=== PATIENT | female | born 1950 | race American Indian/Alaskan Native ===

== ENCOUNTER 2018-12-26 16:46 | Inpatient (IN) | payer MEDICARE ==
[2018-12-26] MEDS ORDERED: HALOPERIDOL LACTATE 5 MG/1 ML INJ IM PRN (19:38)
[2018-12-26] MEDS ORDERED: LORazepam 2 MG/ML VIAL IM PRN (19:38)
[2018-12-28] MEDS ORDERED: LORazepam 1 MG TAB PO PRN (01:25)
[2018-12-28] MEDS ORDERED: HALOPERIDOL LACTATE 5 MG/1 ML INJ IM PRN (01:28)
[2018-12-28] MEDS ORDERED: HALOPERIDOL 5 MG TAB PO PRN (01:28)
[2018-12-28] MEDS: OLANzapine ZYDIS 5 MG TAB PO SCH ×2 (04:19→21:36)
[2018-12-28] MEDS: LISINOPRIL 20 MG TAB PO SCH (10:22)
--- NOTE | 2018-12-28 13:37 | Consultation ---
History of Present Illness - Reason for Consult Consult date: 12/28/18 MEDICAL MANAGEMENT HTN Requesting physician: NATHAN SRIVASTAVA - History of Present Illness 68 year old female with hxx of MDD With Pyschotic features, and inability to care for herself, HTN presenting to our facility following mangement at an outside facility for wandering from home. hx of Divorce. Patient was transferred from [facility] to [facility]. patient was found wandered from home, she is delusional, hyper-yazidism, paranoid and present with poor PO intake and poor hygiene. she Leaves with daughter Hx of 1013 in the past Hx of POOR PO inake, insomina and poor hygiene Possible underlying Dementia Hyperreligious with parnaoid delusions further record obtained from the chart shows "She did nid not want to be in the same house with the cat so she left and was waiting for her brother who lives in [place] to come get her. She knew her brother was on his way to get her because "my spirits told me so". Her spirits also told her not to stay in the same house as the cat. She denies hallucinations, paranoia, suicidal or homicidal thoughts. She describes a good and stable mood. She sleeps fairly ok and appetite is fine. Past History Past Medical History: other (schizophrenia) Past Surgical History: No surgical history Social history: no significant social history Family history: no significant family history Medications and Allergies Allergies Allergy/AdvReac Type Severity Reaction Status Date / Time No Known Allergies Allergy Unverified 12/28/18 00:52 Home Medications Medication Instructions Recorded Confirmed Last Taken Type Lisinopril 20 mg PO DAILY 12/30/18 12/30/18 Unknown History Zyprexa Zydis 5 mg PO HS 12/30/18 12/30/18 Unknown History Active Meds: Active Medications Haloperidol (Haldol) 5 mg PO Q6H PRN PRN Reason: Agitation Haloperidol Lactate (Haldol) 5 mg IM Q6H PRN PRN Reason: Agitation Lisinopril (Zestril) 20 mg PO QDAY [facility] Last Admin: 12/28/18 10:22 Dose: 20 mg Documented by: Lorazepam (Ativan) 2 mg IM Q6H PRN PRN Reason: Agitation Lorazepam (Ativan) 2 mg PO Q6H PRN PRN Reason: Agitation Olanzapine (Zyprexa Zydis) 5 mg PO QHS [facility] Last Admin: 12/28/18 04:19 Dose: Not Given Documented by: Review of Systems All systems: negative Cardiovascular: no chest pain, no orthopnea Gastrointestinal: no vomiting, no diarrhea, no change in bowel habits, no hematochezia, no heartburn, no jaundice, no early satiety Rectal: no incontinence Musculoskeletal: no neck pain, no shooting arm pain, no low back pain, no morning stiffness, no muscle weakness, no muscle cramps, no fractures Integumentary: no pruritis, no sores, no jaundice, no bullae, no darkening of skin, no dryness, no hirsutism, no foot/leg ulcers Neurological: no parathesias, no tingling, no syncope, no aphasia, no sensory deficit, no loss of vision, no hearing difficulties Psychiatric: no memory loss, no change in sleep habits, no insomnia, no hypersomnia, no disorientation, no paranoia, no depression, no confusion, no sadness/tearfullness Endocrine: no cold intolerance, no polyphagia, no nocturia, no weight change, no increase in ring/shoe/hat size, no deepening of the voice, no thyroid mass, no low blood sugars, no recent glucocorticoid use Allergic/Immunologic: no urticaria, no persistent infections Exam - Constitutional Vitals: Temp Pulse Resp BP Pulse Ox 87 136/68 98 12/28/18 10:22 12/28/18 10:22 12/28/18 10:18 General appearance: Present: no acute distress - EENT Eyes: Present: PERRL, EOM intact ENT: hearing intact, clear oral mucosa - Neck Neck: Present: supple, normal ROM - Respiratory Respiratory effort: normal Respiratory: bilateral: CTA - Cardiovascular Rhythm: regular Heart Sounds: Present: S1 & S2. Absent: systolic murmur, diastolic murmur - Extremities Extremities: no ischemia, pulses intact, pulses symmetrical, No edema, normal temperature, normal color, Full ROM Peripheral Pulses: within normal limits - Abdominal General gastrointestinal: Present: soft, non-tender, non-distended, normal bowel sounds - Integumentary Integumentary: Present: clear, warm, dry - Musculoskeletal Musculoskeletal: strength equal bilaterally - Psychiatric Psychiatric: cooperative, depressed - Allied Health Allied health notes reviewed: nursing Assessment and Plan 68 year old female with hxx of MDD With Pyschotic features, and inability to care for herself, HTN presenting to our facility following mangement at an outside facility for wandering from home. hx of Divorce Leaves with daughter Hx of 1013 in the past Hx of POOR PO inake, insomina and poor hygiene Possible underlying Dementia Hyperreligious with parnaoid delusions HTN -Resume lisinopril MDD -Mangement per Pysch team. dvt/gi prophy
--- NOTE | 2018-12-28 20:04 | History and Physical Report ---
GP History & Physical - History of Present Illness Date of admission: 12/27/18 Date of Examination: 12/28/18 Reason for Admission: Impaired reality testing, Psychopathology interference, Unable to care for self Chief Complaint: I did not want to be in the same house with a cat History of Present Illness: The patient is a 68yo AAF with unknown psychiatric history, transferred from [facility] to [facility]. Per referral source, patient was found wandered from home, she is delusional, hyper-spiritism, paranoid and present with poor PO intake and poor hygiene. In my interview with the patient she reports that her daughter brought home a friend's cat to [facility]" without consulting her (the patient). She asked her daughter to take the cat away from the house but daughter refused. She did nid not want to be in the same house with the cat so she left and was waiting for her brother who lives in [place] to come get her. She knew her brother was on his way to get her because "my spirits told me so". Her spirits also told her not to stay in the same house as the cat. She denies hallucinations, paranoia, suicidal or homicidal thoughts. She describes a good and stable mood. She sleeps fairly ok and appetite is fine. Legal Status: Involuntary Patient Problems: Current Active Problems Unspecified psychosis (Acute) Reaction to Hospitalization: Opposed Substance History - Substance History Drug Use: none Hx Tobacco Use: No Alcohol Use: No Past psychiatric history - Past Medical History Past Medical History: hypertension - past Psychiatric treatment and history psychiatric treatment history: Patient reports 2 previous psych admissions. No suicide attempts and no established out-patient care - Social History Social history: , lives with family (with daughter, retired, completed high school, no legal problems and no access to guns) Review of Systems All systems: negative Psychiatric: irritability Results - Results Labs/Vitals: Last Vital Signs Temp Pulse 87 12/28/18 10:22 Resp BP 136/68 12/28/18 10:22 Pulse Ox 98 12/28/18 10:18 Physical Examination - Constitutional Vitals: Vital Signs Temp Pulse Resp BP Pulse Ox 87 136/68 98 12/28/18 10:22 12/28/18 10:22 12/28/18 10:18 General appearance: Present: no acute distress, well-nourished - EENT Eyes: Present: PERRL, EOM intact ENT: hearing intact, clear oral mucosa - Neck Neck: Present: supple, normal ROM - Respiratory Respiratory effort: normal Mental Status Exam - Vital signs Last Vital Signs Temp Pulse 87 12/28/18 10:22 Resp BP 136/68 12/28/18 10:22 Pulse Ox 98 12/28/18 10:18 - Exam Orientation: time, place, person Affect: flat Mood: congruent with affect Thought content: delusions (?) Thought Process: Intact Perceptions: none Speech: normal rate and pattern Concentration: focused Motor activity: normal Level of consciousness: alert Memory: Intact Interaction: guarded Assessment and Plan - Psychiatric problem (1) Unspecified psychosis Current Visit: Yes Status: Acute plan to address problem: Patient will be admitted for inpatient psychiatric evaluation, medication adjustment and close monitoring The patient's behavior, mood, sleep and appetite will be closely monitored. Patient will be enrolled in individual and group therapeutic sessions and encouraged to attend. Patient will be provided with a safe and structured environment. Patient's physical health needs will be addressed by the Hospitalist. Social Assessment will be completed and the Aws Developer will work with patient and family to ensure a suitable and safe disposition Medication adjustment will be made as clinically indicated The patient agreed on the treatment plan, understood the risk, benefit, alternative treatment, potential consequence of no treatment, and gave informed consent. Physician Certification - Certification Statement Physician Certification Statement: This is an acknowledgement statement that CLARI HOPKINS is a 68 year old F who requires inpatient psychiatric admission for treatment which could reasonably be expected to improve the patient's condition for Psychosis Estimated period of time patient will need to remain in the hospital: 7 days Plan for post-hospital care: Out-patient care Medications & Allergies - Medications Allergies/Adverse Reactions: Allergies No Known Allergies Allergy (Unverified 12/28/18 00:52) Active Medications: Generic Name Dose Route Start Last Admin Trade Name Freq PRN Reason Stop Dose Admin Haloperidol 5 mg 12/28/18 01:28 Haldol PO Q6H PRN Agitation Haloperidol Lactate 5 mg 12/26/18 19:38 Haldol IM Q6H PRN Agitation Lisinopril 20 mg 12/28/18 10:00 12/28/18 10:22 Zestril PO 20 mg QDAY [facility]STA Administration Lorazepam 2 mg 12/26/18 19:38 Ativan IM Q6H PRN Agitation Lorazepam 2 mg 12/28/18 01:25 Ativan PO Q6H PRN Agitation Olanzapine 5 mg 12/28/18 03:03 12/28/18 04:19 Zyprexa Zydis PO Not Given QHS [facility]RISTA
[2018-12-29] MEDS: LISINOPRIL 20 MG TAB PO SCH (10:33)
--- NOTE | 2018-12-29 21:21 | Progress Note ---
Subjective Date of service: 12/29/18 Principal diagnosis: Acute Psychosis Subjective Comment: The patient is withdrawn, isolates and refuses medications. She is guarded, states that her mood is good, denies SI/HI/AVH. MSE Orientation: time, place, person Affect: flat Mood: congruent with affect Thought content: delusions (?) Thought Process: Intact Perceptions: none Speech: normal rate and pattern Concentration: focused Motor activity: normal Level of consciousness: alert Memory: Intact Interaction: guarded Objective - Criteria for Continued Treatment Criteria for Continued Treatment: Understanding Diagnosis and need for Medication, Improving Treatment / Medication Compliance, Confronting Denial of Illness - Objective Observation Participation Level: None Reason(s) For Not Participating: Not Interested Assessment and Plan - Patient Problems (1) Unspecified psychosis Current Visit: Yes Status: Acute Plan to address problem: Patient will be admitted for inpatient psychiatric evaluation, medication adjustment and close monitoring The patient's behavior, mood, sleep and appetite will be closely monitored. Patient will be enrolled in individual and group therapeutic sessions and encouraged to attend. Patient will be provided with a safe and structured environment. Patient's physical health needs will be addressed by the Hospitalist. Social Assessment will be completed and the Design Agent will work with patient and family to ensure a suitable and safe disposition Medication adjustment will be made as clinically indicated The patient agreed on the treatment plan, understood the risk, benefit, alternative treatment, potential consequence of no treatment, and gave informed consent. Medications & Allergies - Medications Allergies/Adverse Reactions: Allergies No Known Allergies Allergy (Unverified 12/28/18 00:52) Active Medications: Generic Name Dose Route Start Last Admin Trade Name Freq PRN Reason Stop Dose Admin Haloperidol 5 mg 12/28/18 01:28 Haldol PO Q6H PRN Agitation Haloperidol Lactate 5 mg 12/26/18 19:38 Haldol IM Q6H PRN Agitation Lisinopril 20 mg 12/28/18 10:00 12/29/18 10:33 Zestril PO Not Given QDAY [facility]STA Lorazepam 2 mg 12/26/18 19:38 Ativan IM Q6H PRN Agitation Lorazepam 2 mg 12/28/18 01:25 Ativan PO Q6H PRN Agitation Olanzapine 5 mg 12/28/18 03:03 12/28/18 21:36 Zyprexa Zydis PO Not Given QHS [facility]RISTA
[2018-12-29] MEDS: OLANzapine ZYDIS 5 MG TAB PO SCH (21:29)
[2018-12-30] MEDS: LISINOPRIL 20 MG TAB PO SCH (10:33)
--- NOTE | 2018-12-30 17:03 | Progress Note ---
Subjective Date of service: 12/30/18 Principal diagnosis: Acute Psychosis Subjective Comment: The patient is psychotic - paranoid and disorganized. Not showering, hair is matted, is withdrawn, isolates and hyper-mandaeism. Distressed about the devil attacking her. States that she fell earlier today because the devil attacked her. She is guarded, denies SI/HI/AVH. MSE Orientation: time, place, person Affect: flat Mood: congruent with affect Thought content: delusional Thought Process: Intact Perceptions: none Speech: normal rate and pattern Concentration: focused Motor activity: normal Level of consciousness: alert Memory: Intact Interaction: guarded Objective - Criteria for Continued Treatment Criteria for Continued Treatment: Improving Level of Functioning, Understanding Diagnosis and need for Medication, Improving Treatment / Medication Compliance, Confronting Denial of Illness, Stablizing Level of Functioning, Improving Emotional/Socia - Objective Observation Participation Level: Minimal Reason(s) For Not Participating: Not Interested Assessment and Plan - Patient Problems (1) Unspecified psychosis Current Visit: Yes Status: Acute Plan to address problem: Patient will be admitted for inpatient psychiatric evaluation, medication adjustment and close monitoring The patient's behavior, mood, sleep and appetite will be closely monitored. Patient will be enrolled in individual and group therapeutic sessions and encouraged to attend. Patient will be provided with a safe and structured environment. Patient's physical health needs will be addressed by the Hospitalist. Social Assessment will be completed and the Heavy Equipment Diesel Mechanic will work with patient and family to ensure a suitable and safe disposition Medication adjustment will be made as clinically indicated Start Haldol 5mg bid IM for acute psychosis Medications & Allergies - Medications Allergies/Adverse Reactions: Allergies No Known Allergies Allergy (Unverified 12/28/18 00:52) Home Medications: Home Medications Medication Instructions Recorded Confirmed Last Taken Type Lisinopril 20 mg PO DAILY 12/30/18 12/30/18 Unknown History Zyprexa Zydis 5 mg PO HS 12/30/18 12/30/18 Unknown History Active Medications: Generic Name Dose Route Start Last Admin Trade Name Freq PRN Reason Stop Dose Admin Haloperidol 5 mg 12/28/18 01:28 Haldol PO Q6H PRN Agitation Haloperidol Lactate 5 mg 12/26/18 19:38 Haldol IM Q6H PRN Agitation Lisinopril 20 mg 12/28/18 10:00 12/30/18 10:33 Zestril PO Not Given QDAY [facility]STA Lorazepam 2 mg 12/26/18 19:38 Ativan IM Q6H PRN Agitation Lorazepam 2 mg 12/28/18 01:25 Ativan PO Q6H PRN Agitation Olanzapine 5 mg 12/28/18 03:03 12/29/18 21:29 Zyprexa Zydis PO Not Given QHS [facility]
[2018-12-30] MEDS ORDERED: HALOPERIDOL LACTATE 5 MG/1 ML INJ IM ONE ×2 (18:00→19:34)
[2018-12-30] MEDS: OLANzapine ZYDIS 5 MG TAB PO SCH ×2 (22:00→22:35)
[2018-12-31] MEDS: risperiDONE 0.25 MG TAB PO SCH ×2 (11:11→21:55)
[2018-12-31] MEDS: LISINOPRIL 20 MG TAB PO SCH (11:11)
--- NOTE | 2018-12-31 15:11 | Progress Note ---
Subjective Date of service: 12/31/18 Principal diagnosis: Acute Psychosis Subjective Comment: The patient is psychotic - paranoid and disorganized. Not showering, hair is matted, is withdrawn, isolates and hyper-caodaism. She has reportedly not showered for months. She is guarded, denies SI/HI/AVH. MSE Orientation: time, place, person Affect: flat Mood: congruent with affect Thought content: delusional Thought Process: Intact Perceptions: none Speech: normal rate and pattern Concentration: focused Motor activity: normal Level of consciousness: alert Memory: Intact Interaction: guarded Objective - Criteria for Continued Treatment Criteria for Continued Treatment: Improving Level of Functioning, Reducing Isolative Behaviors, Understanding Diagnosis and need for Medication, Improving Treatment / Medication Compliance, Confronting Denial of Illness, Stablizing Level of Functioning, Improving Emotional/Socia - Objective Observation Participation Level: None Reason(s) For Not Participating: Not Interested Assessment and Plan - Patient Problems (1) Unspecified psychosis Current Visit: Yes Status: Acute Plan to address problem: Patient will be admitted for inpatient psychiatric evaluation, medication adjustment and close monitoring The patient's behavior, mood, sleep and appetite will be closely monitored. Patient will be enrolled in individual and group therapeutic sessions and encouraged to attend. Patient will be provided with a safe and structured environment. Patient's physical health needs will be addressed by the Hospitalist. Social Assessment will be completed and the Automotive Worker will work with patient and family to ensure a suitable and safe disposition Medication adjustment will be made as clinically indicated Medications & Allergies - Medications Allergies/Adverse Reactions: Allergies No Known Allergies Allergy (Unverified 12/28/18 00:52) Home Medications: Home Medications Medication Instructions Recorded Confirmed Last Taken Type Lisinopril 20 mg PO DAILY 12/30/18 12/30/18 Unknown History Zyprexa Zydis 5 mg PO HS 12/30/18 12/30/18 Unknown History Active Medications: Generic Name Dose Route Start Last Admin Trade Name Freq PRN Reason Stop Dose Admin Haloperidol 5 mg 12/28/18 01:28 Haldol PO Q6H PRN Agitation Haloperidol Lactate 5 mg 12/26/18 19:38 Haldol IM Q6H PRN Agitation Lisinopril 20 mg 12/28/18 10:00 12/31/18 11:11 Zestril PO 20 mg QDAY [facility] Administration Lorazepam 2 mg 12/26/18 19:38 Ativan IM Q6H PRN Agitation Lorazepam 2 mg 12/28/18 01:25 Ativan PO Q6H PRN Agitation Risperidone 0.5 mg 12/31/18 10:00 12/31/18 11:11 Risperdal PO 0.5 mg BID CHRISTA Administration
[2019-01-01] MEDS: risperiDONE 0.25 MG TAB PO SCH ×2 (10:44→21:42)
[2019-01-01] MEDS: LISINOPRIL 20 MG TAB PO SCH (10:46)
--- NOTE | 2019-01-01 11:11 | Progress Note ---
Subjective Date of service: 01/01/19 Principal diagnosis: Acute Psychosis Subjective Comment: The patient is less psychotic, she is more interactive and accepts her medications without resistance. She denies SI/HI/AVH. MSE Orientation: time, place, person Affect: flat Mood: congruent with affect Thought content: delusional Thought Process: Intact Perceptions: none Speech: normal rate and pattern Concentration: focused Motor activity: normal Level of consciousness: alert Memory: Intact Interaction: guarded Objective - Criteria for Continued Treatment Criteria for Continued Treatment: Improving Level of Functioning, Reducing Isolative Behaviors, Understanding Diagnosis and need for Medication, Improving Treatment / Medication Compliance, Confronting Denial of Illness, Stablizing Level of Functioning, Improving Emotional/Socia - Objective Observation Participation Level: Minimal Assessment and Plan - Patient Problems (1) Unspecified psychosis Current Visit: Yes Status: Acute Plan to address problem: Patient will be admitted for inpatient psychiatric evaluation, medication adjustment and close monitoring The patient's behavior, mood, sleep and appetite will be closely monitored. Patient will be enrolled in individual and group therapeutic sessions and encouraged to attend. Patient will be provided with a safe and structured environment. Patient's physical health needs will be addressed by the Hospitalist. Social Assessment will be completed and the Piano Mover will work with patient and family to ensure a suitable and safe disposition Medication adjustment will be made as clinically indicated Medications & Allergies - Medications Allergies/Adverse Reactions: Allergies No Known Allergies Allergy (Unverified 12/28/18 00:52) Home Medications: Home Medications Medication Instructions Recorded Confirmed Last Taken Type Lisinopril 20 mg PO DAILY 12/30/18 12/30/18 Unknown History Zyprexa Zydis 5 mg PO HS 12/30/18 12/30/18 Unknown History Active Medications: Generic Name Dose Route Start Last Admin Trade Name Freq PRN Reason Stop Dose Admin Haloperidol 5 mg 12/28/18 01:28 Haldol PO Q6H PRN Agitation Haloperidol Lactate 5 mg 12/26/18 19:38 12/31/18 22:54 Haldol IM 5 mg Q6H PRN Administration Agitation Lisinopril 20 mg 12/28/18 10:00 01/01/19 10:46 Zestril PO 20 mg QDAY [facility]STA Administration Lorazepam 2 mg 12/26/18 19:38 Ativan IM Q6H PRN Agitation Lorazepam 2 mg 12/28/18 01:25 Ativan PO Q6H PRN Agitation Risperidone 0.5 mg 12/31/18 10:00 01/01/19 10:44 Risperdal PO 0.5 mg BID CHRISTA Administration
[2019-01-02] MEDS: risperiDONE 0.25 MG TAB PO SCH ×2 (10:05→23:16)
[2019-01-02] MEDS: LISINOPRIL 20 MG TAB PO SCH (10:05)
[2019-01-03] MEDS: risperiDONE 0.25 MG TAB PO SCH ×2 (09:42→21:24)
[2019-01-03] MEDS: LISINOPRIL 20 MG TAB PO SCH (09:42)
--- NOTE | 2019-01-03 17:42 | Progress Note ---
Subjective Date of service: 01/03/19 Principal diagnosis: Acute Psychosis Subjective Comment: The patient is less psychotic, she is more interactive and accepts her medications without resistance. She denies SI/HI/AVH. MSE Orientation: time, place, person Affect: flat Mood: congruent with affect Thought content: delusional Thought Process: Intact Perceptions: none Speech: normal rate and pattern Concentration: focused Motor activity: normal Level of consciousness: alert Memory: Intact Interaction: guarded Objective - Criteria for Continued Treatment Criteria for Continued Treatment: Improving Level of Functioning, Reducing Isolative Behaviors, Understanding Diagnosis and need for Medication, Improving Treatment / Medication Compliance, Confronting Denial of Illness, Stablizing Level of Functioning, Improving Emotional/Socia - Objective Observation Participation Level: Minimal Assessment and Plan - Patient Problems (1) Unspecified psychosis Current Visit: Yes Status: Acute Plan to address problem: Patient will be admitted for inpatient psychiatric evaluation, medication adjustment and close monitoring The patient's behavior, mood, sleep and appetite will be closely monitored. Patient will be enrolled in individual and group therapeutic sessions and encouraged to attend. Patient will be provided with a safe and structured environment. Patient's physical health needs will be addressed by the Hospitalist. Social Assessment will be completed and the Gas Transfer Operator will work with patient and family to ensure a suitable and safe disposition Medication adjustment will be made as clinically indicated
--- NOTE | 2019-01-04 09:18 | Progress Note ---
Subjective Date of service: 01/04/19 Principal diagnosis: Acute Psychosis Subjective Comment: The patient is less psychotic, she is more interactive and accepts her medications without resistance. She denies SI/HI/AVH. MSE Orientation: time, place, person Affect: flat Mood: congruent with affect Thought content: delusional Thought Process: Intact Perceptions: none Speech: normal rate and pattern Concentration: focused Motor activity: normal Level of consciousness: alert Memory: Intact Interaction: guarded Objective - Criteria for Continued Treatment Criteria for Continued Treatment: Improving Level of Functioning, Reducing Isolative Behaviors, Understanding Diagnosis and need for Medication, Improving Treatment / Medication Compliance, Confronting Denial of Illness, Stablizing Level of Functioning, Improving Emotional/Socia - Objective Observation Participation Level: Moderate Assessment and Plan - Patient Problems (1) Unspecified psychosis Current Visit: Yes Status: Acute Plan to address problem: Patient will be admitted for inpatient psychiatric evaluation, medication adjustment and close monitoring The patient's behavior, mood, sleep and appetite will be closely monitored. Patient will be enrolled in individual and group therapeutic sessions and encouraged to attend. Patient will be provided with a safe and structured environment. Patient's physical health needs will be addressed by the Hospitalist. Social Assessment will be completed and the Dynamics Ax Technical Architect will work with patient and family to ensure a suitable and safe disposition Medication adjustment will be made as clinically indicated
[2019-01-04] MEDS: risperiDONE 0.25 MG TAB PO SCH ×2 (10:00→22:04)
[2019-01-04] MEDS: LISINOPRIL 20 MG TAB PO SCH (10:28)
[2019-01-05] MEDS: LISINOPRIL 20 MG TAB PO SCH (10:21)
[2019-01-05] MEDS: risperiDONE 0.25 MG TAB PO SCH ×2 (10:22→22:05)
--- NOTE | 2019-01-06 07:34 | Progress Note ---
Subjective Date of service: 01/05/19 Principal diagnosis: Acute Psychosis Subjective Comment: The patient is less psychotic, she is more interactive and accepts her medications without resistance. She denies SI/HI/AVH. She is now voluntary. I have discussed Long acting monthly/2 weekly antipsychotic injection to ensure compliance MSE Orientation: time, place, person Affect: flat Mood: congruent with affect Thought content: delusional Thought Process: Intact Perceptions: none Speech: normal rate and pattern Concentration: focused Motor activity: normal Level of consciousness: alert Memory: Intact Interaction: guarded Objective - Criteria for Continued Treatment Criteria for Continued Treatment: Improving Level of Functioning, Reducing Isolative Behaviors, Understanding Diagnosis and need for Medication, Confronting Denial of Illness, Stablizing Level of Functioning, Improving Emotional/Socia - Objective Observation Participation Level: Minimal Assessment and Plan - Patient Problems (1) Unspecified psychosis Current Visit: Yes Status: Acute Plan to address problem: Patient will be admitted for inpatient psychiatric evaluation, medication adjustment and close monitoring The patient's behavior, mood, sleep and appetite will be closely monitored. Patient will be enrolled in individual and group therapeutic sessions and encouraged to attend. Patient will be provided with a safe and structured environment. Patient's physical health needs will be addressed by the Hospitalist. Social Assessment will be completed and the Metal Finisher will work with patient and family to ensure a suitable and safe disposition Medication adjustment will be made as clinically indicated
[2019-01-06] MEDS: LISINOPRIL 20 MG TAB PO SCH (09:44)
[2019-01-06] MEDS: risperiDONE 0.25 MG TAB PO SCH ×2 (09:45→21:00)
--- NOTE | 2019-01-06 11:35 | Progress Note ---
Subjective Date of service: 01/06/19 Principal diagnosis: Acute Psychosis Subjective Comment: The patient is not psychotic. She is insightful, recognizes that she was not well and promises to take her medications including monthly antipsychotic injection. She is interactive and accepts her medications without resistance. She denies SI/HI/AVH. MSE Orientation: time, place, person Affect: Normal Mood: congruent with affect Thought content: Normal Thought Process: Intact Perceptions: none Speech: normal rate and pattern Concentration: focused Motor activity: normal Level of consciousness: alert Memory: Intact Interaction: Cooperative Objective - Criteria for Continued Treatment Criteria for Continued Treatment: Improving Level of Functioning, Stablizing Level of Functioning, Improving Emotional/Socia - Objective Observation Participation Level: Moderate Assessment and Plan - Patient Problems (1) Unspecified psychosis Current Visit: Yes Status: Acute Plan to address problem: Patient will be admitted for inpatient psychiatric evaluation, medication adjustment and close monitoring The patient's behavior, mood, sleep and appetite will be closely monitored. Patient will be enrolled in individual and group therapeutic sessions and encouraged to attend. Patient will be provided with a safe and structured environment. Patient's physical health needs will be addressed by the Hospitalist. Social Assessment will be completed and the Graphotype Operator will work with patient and family to ensure a suitable and safe disposition Medication adjustment will be made as clinically indicated Medications & Allergies - Medications Allergies/Adverse Reactions: Allergies No Known Allergies Allergy (Unverified 12/28/18 00:52) Home Medications: Home Medications Medication Instructions Recorded Confirmed Last Taken Type Lisinopril 20 mg PO DAILY 12/30/18 12/30/18 Unknown History Zyprexa Zydis 5 mg PO HS 12/30/18 12/30/18 Unknown History Active Medications: Generic Name Dose Route Start Last Admin Trade Name Freq PRN Reason Stop Dose Admin Haloperidol 5 mg 12/28/18 01:28 Haldol PO Q6H PRN Agitation Haloperidol Lactate 5 mg 12/26/18 19:38 12/31/18 22:54 Haldol IM 5 mg Q6H PRN Administration Agitation Lisinopril 20 mg 12/28/18 10:00 01/07/19 09:26 Zestril PO 20 mg QDAY CHRISTA Administration Lorazepam 2 mg 12/26/18 19:38 Ativan IM Q6H PRN Agitation Lorazepam 2 mg 12/28/18 01:25 Ativan PO Q6H PRN Agitation Risperidone 0.5 mg 12/31/18 10:00 01/07/19 09:27 Risperdal PO 0.5 mg BID CHRISTA Administration
[2019-01-07 09:25] VITALS: BP 109/56
[2019-01-07] MEDS: LISINOPRIL 20 MG TAB PO SCH (09:26)
[2019-01-07] MEDS: risperiDONE 0.25 MG TAB PO SCH (09:27)
--- NOTE | 2019-01-07 11:32 | Discharge Summary ---
Providers - Providers Date of Admission: 12/28/18 00:53 Date of discharge: 01/07/19 Attending physician: NATHAN SRIVASTAVA MD 12/28/18 01:01 Consult to Dietitian/Nutrition [CONS] Routine Physician Instructions: Reason For Exam: Reason for Consult: HTN Consult to Physician [CONS] Routine Comment: Consulting Provider: MAIN BASS Physician Instructions: Reason For Exam: H&P Primary care physician: RESTAURANT CASHIER Hospitalization Reason for admission: Psychotic, disorganized and paranoid Condition: Stable Hospital course: The patient was provided inpatient psychiatric treatment with safe and supportive environment, group therapy, individual counseling, psychiatric medication, medication adjustment, adverse effect monitor, medical evaluation, medical treatment, social service assessment, family/social support meeting, placement assessment and psycho-education. The patients mood, anxiety, though ts, stress management skill, cognition, impulse/anger control, motivation, understanding of disease, compliance to treatment and appreciation on family/social support are improved and stabilized. At the time of discharge, the patient had no suicidal ideas, no homicidal ideas, no aggressive thoughts, no endangering behavior and no debilitating adverse effects. Disposition: DC-01 TO HOME OR SELFCARE Allergies/Adverse Reactions: Allergies No Known Allergies Allergy (Unverified 12/28/18 00:52) Vital Signs: Last Vital Signs Temp 98.4 F 01/06/19 19:48 Pulse 75 01/07/19 09:26 Resp 16 01/06/19 19:48 BP 109/56 01/07/19 09:26 Pulse Ox 96 01/07/19 09:22 Last Lab: Laboratory Last Values POC Glucose 115 (70-105) H 12/30/18 13:05 - Discharge Diagnoses (1) Unspecified psychosis Status: Acute Qualifiers: Schizophrenia type: paranoid schizophrenia Core Measure Documentation - Palliative Care Palliative Care/ Comfort Measures: Not Applicable - Core Measures Any of the following diagnoses?: none Exam - Constitutional Vitals: Temp Pulse Resp BP Pulse Ox 98.4 F 75 16 109/56 96 01/06/19 19:48 10 09:26 10 19:48 01/07/19 09:26 01/07/19 09:22 General appearance: Present: no acute distress, well-nourished - EENT Eyes: Present: PERRL, EOM intact ENT: hearing intact, clear oral mucosa - Neck Neck: Present: normal ROM - Respiratory Respiratory effort: normal Plan Activity: advance as tolerated Weight Bearing Status: Weight Bear as Tolerated Care Plan Goals: No psychotic episodes Plan of Treatment: Take medications as prescribed and attend out-patient follow-up appointments Health Concerns: None Assessment: Paranoid Schizophrenia Follow up with: PRIMARY CARE, [Primary Care Provider] - 7 Days Prescriptions: Paliperidone Palmitate [Invega Sustenna] 117 mg IM QMONTH #1 syringe Paliperidone Palmitate [Invega Sustenna] 156 mg IM ONCE #1 syringe Paliperidone Palmitate(Nf) [Invega Sustenna(Nf)] 234 mg IM ONCE #1 syringe Lisinopril 20 mg PO DAILY #30 risperiDONE [RisperDAL] 0.5 mg PO BID #30 tablet
== END 2019-01-07 20:40 | disposition home or self-care (01) | DRG 885 ==
LOC: 3A 16:46 → UNDOADMIN 16:46 → 5A 12-28 00:53
PROVIDERS: ADMIT Psychiatry & Neurology Psychiatry; ATTEND Psychiatry & Neurology Psychiatry
DX: F20.0 Paranoid schizophrenia (principal); I10 Essential (primary) hypertension; F32.9 Major depressive disorder, single episode, unspecified
CPT/HCPCS: 82962; G0378; J1630